=== PATIENT | male | born 1970 | race Caucasian/White ===

== ENCOUNTER 2024-12-11 06:17 | Day surgery (SDC) | payer OTHER, SELFPAY | END 2024-12-11 08:41 | disposition home or self-care (01) | LOC: GI 06:17 | PROVIDERS: ATTENDING PHYSICIAN Internal Medicine | DX: Z12.11 Encounter for screening for malignant neoplasm of colon (principal); K64.8 Other hemorrhoids | CPT/HCPCS: G0121 ==

== ENCOUNTER 2025-08-20 00:03 | Emergency (ER) | payer OTHER, SELFPAY ==
[2025-08-20 00:06] VITALS: BP 154/90
--- NOTE | 2025-08-20 00:21 | ED.GENMED ---
History of Present Illness
General
Chief Complaint: Musculo-Skeletal Complaint
Source: patient
Exam Limitations: none
Time Seen by Provider: 08/20/25 00:21
Nursing documentation reviewed up to this point in time: agreed with
History of Present Illness
History of Present Illness:
The patient is a 55-year-old man with a past medical history of a prior right fifth finger injury and deformity, who reports that his right fifth finger got stuck in tucked blankets of his bed and became deformed and painful. Patient denies
weakness and numbness of his right arm and hand. He reports that there was no other injury. He did not fall. Patient denies any pain of the right wrist, right elbow or right shoulder.
Past History
Past History
ED Past Medical History: HTN
ED Past Surgical History: Orthopedic
Social History
Tobacco: Other
Alcohol: Other
Drug: None
Personal:
Living: with family
Employment: Employed
Family History
Family History: Other
Review of Systems
Review of Systems
Allergies reviewed?: Yes
All Other Systems: ROS reviewed and negative except as documented in HPI and ROS
Constitutional: Reports no symptoms
EENT: Reports no symptoms
Respiratory: Reports no symptoms
Cardiac: Reports no symptoms
ABD/GI: Reports no symptoms
: Reports no symptoms
Musculoskeletal: Reports joint pain and joint swelling
Skin: Reports no symptoms
Neurological: Reports no symptoms
Endocrine: Reports no symptoms
Hematologic/Lymphatic: Reports no symptoms
Psychiatric: Reports no symptoms
Phy Exam
Physical Exam
Physical Exam:
General: Appears well. Atraumatic appearing face and head
Neck is supple
Cardiovascular: Strong pulse in right wrist. Good cap refill of right fingers
Lungs: Breathing comfortably
Abdomen is soft
Skin shows no rash
Psych: Calm and cooperative
Neurological: Good sensation in hands bilaterally.
Extremities: Deformity of distal and mid right fifth finger
Course
Orders/Labs/Results
Orders:
Orders
08/20/25 00:09
Finger(s)/Thumb 2 View Rt [CR Finger(s)/thumb Min 2 Vw Rt] Urgent
Comment:
Reason For Exam: DEFORMITY
Indicate Which Finger:: Little Finger
08/20/25 00:52
Finger(s)/Thumb 2 View Rt [CR Finger(s)/thumb Min 2 Vw Rt] Urgent
Comment:
Reason For Exam: post-reduction right 5th finger
Vital Signs
Initial and Last Documented VS:
Initial Vital Signs
Temp Pulse Resp BP Pulse Ox
97.8 F 74 20 154/90 98
08/20/25 00:06 08/20/25 00:06 08/20/25 00:06 08/20/25 00:06 08/20/25 00:06
Last Documented Vital Signs
Temp Pulse Resp BP Pulse Ox
97.8 F 74 20 154/90 98
08/20/25 00:06 08/20/25 00:06 08/20/25 00:06 08/20/25 00:06 08/20/25 00:21
Procedures
Joint/Fracture Reduction
Right Fifth Finger:
Anesthesia/sedation: Regional block
Injury was: closed
Post reduction exam: stable
Capillary Refill: normal
Normal distal neurovascular exam?: Yes
Digital Block
Location of injection for digital block: base of digit
Indiction for Digital Block: orthopedic procedure
Was sensory exam normal prior to exam?: decreased pin prick
Type of anesthesia: 1% Lidocaine w/o EPI
Complications: none- good anesthesia
MDM/Problems Addressed
Differential Diagnosis Includes:
Dislocation of right fifth finger, fracture of right fifth finger, ligamentous injury of right fifth finger
MDM/Problems Addressed:
Patient presents with acute pain and swelling of right fifth finger
Chronic conditions affecting care: HTN
Acute Exacerbation and/or Progression of Chronic Illness:
Patient is acutely hypertensive, however, I suspect this is due to anxiety and pain. There is no sign of neurological deficit, chest pain or shortness of breath
Acute Exacerbation and/or Progression of Chronic Illness: HTN
*Radiology
Radiology exam reviewed: preliminary read by ED provider (Fracture of right fifth proximal phalange with dislocation of right phalange. Right hand x-ray reviewed by me)
*Pulse Oximetry
SaO2: 98
Oxygen Mode of Delivery: Room air
Patient hypoxic: no
*EKG
Interpreted by ED Provider?: NA
*Sheet Tailer Interpretation
Rate: Sheet Tailer- N/A
*Critical Care Note
Total Time (30-74mins, 75-104mins- exclusive of procedures): Not Applicable
Data Reviewed
Source: patient and spouse
ED Attending Note
-
Portions of this chart may have been created with voice recognition software.� Occasional wrong word or��sound alike� substitutions may have occurred due to the inherent limitations of voice recognition software.
Discharge Plan
Departure
Referrals:
Shawn Day DO [Family Provider, Family Practice]
Interventions
Interventions:
*Risk Screen - Suicide Last Done: 08/20/25 00:06
*General Assessment Last Done: 08/20/25 00:30
*Neglect/Abuse Screening Last Done: 08/20/25 00:06
*ED- Fall Risk Assessment Last Done: 08/20/25 00:30
*ED COVID-19 Vaccine History Last Done: 08/20/25 00:30
*ED Influenza Vaccine History Last Done: 08/20/25 00:30
ED-Musculoskeletal Assessment Last Done: 08/20/25 00:30
Discharge Date and Time
Print Language: POLISH
== END 2025-08-20 01:58 | disposition home or self-care (01) ==
LOC: EMR 00:03
PROVIDERS: EMERGENCY PHYSICIAN Emergency Medicine; FAMILY PHYSICIAN Family Medicine
DX: S63.286A Dislocation of proximal interphalangeal joint of right little finger, initial encounter (principal); S62.646A Nondisplaced fracture of proximal phalanx of right little finger, initial encounter for closed fracture; W23.0XXA Caught, crushed, jammed, or pinched between moving objects, initial encounter; I10 Essential (primary) hypertension
CPT/HCPCS: 26770; 99283; 73140